=== PATIENT | female | born 1955 | race Caucasian/White ===

== ENCOUNTER 2018-01-06 13:58 | Emergency (ER) | payer OTHER ==
[~2018-01-06] VITALS: Ht 152.4 cm; Wt 80.3 kg
[~2018-01-06 13:58] MED LIST: AMLODIPINE BESYL5 M1 PO; CLONAZEPAM2 MG PO; COZAAR100 MG PO; ENBREL50 MG/ML INJ; MET2.5 PO; METOPROLOL SUC100 M2 PO
[2018-01-06 14:09] VITALS: Ht 152.4 cm; Wt 80.3 kg
[2018-01-06 14:56] LABS: BASOPHIL % 0.3 % (0-2); PLATELET COUNT 264 x10^3mcL (130-400); RED CELL DISTRIBUTION WIDTH 14.2 % (11.5-14.5)
[2018-01-06 15:03] LABS: CALCIUM 9.3 mg/dL (8.5-10.1); CARBON DIOXIDE 30.9 mmol/L (21-32); CHLORIDE SERUM 101 mmol/L (98-107); CREATININE SERUM 0.8 mg/dL (0.6-1.0); GFR1 > 60 mL/min; GLUCOSE SERUM 103 mg/dL (74-106); SODIUM SERUM 137 mmol/L (136-145)
[2018-01-06 15:08] LABS: ALBUMIN 3.5 g/dL (3.4-5.0); ALKALINE PHOSPHATASE 93 U/L (46-116); ALT/SGPT 25 U/L (14-59); AST/SGOT 11 U/L (15-37); BILIRUBIN TOTAL 0.3 mg/dL (0.20-1.00); TOTAL PROTEIN, SERUM 8.5 g/dL (6.4-8.2)
[2018-01-06 15:51] LABS: microscopic required? YES; urine erythrocyte TRACE (NEGATIVE)
[2018-01-06 17:28] VITALS: BP 130/64
== END 2018-01-06 18:05 | disposition home or self-care (01) ==
LOC: ED 13:58
PROVIDERS: Emergency Medicine
DX: G89.29 Other chronic pain (principal); R10.11 Right upper quadrant pain; R10.31 Right lower quadrant pain; R35.0 Frequency of micturition; I10 Essential (primary) hypertension; Z88.5 Allergy status to narcotic agent
CPT/HCPCS: J0696; J1885; J7030; Q0092

== ENCOUNTER 2018-03-22 14:30 | Inpatient (IN) | payer OTHER ==
[~2018-03-22] VITALS: Ht 152.4 cm; Wt 82.0 kg
[~2018-03-22 14:30] MED LIST changes: -AMLODIPINE BESYL5 M1 PO; +NOR10 PO
[2018-03-22 14:36] VITALS: Ht 152.4 cm; Wt 82.0 kg
[2018-03-22 16:15] LABS: CALCIUM 8.8 mg/dL (8.5-10.1); CARBON DIOXIDE 27.9 mmol/L (21-32); CHLORIDE SERUM 104 mmol/L (98-107); CREATININE SERUM 0.6 mg/dL (0.6-1.0); GFR1 > 60 mL/min; GLUCOSE SERUM 92 mg/dL (74-106); POTASSIUM SERUM 3.5 mmol/L (3.5-5.1); SODIUM SERUM 139 mmol/L (136-145)
[2018-03-22 16:19] LABS: ALKALINE PHOSPHATASE 98 U/L (46-116); ALT/SGPT 24 U/L (14-59); AST/SGOT 16 U/L (15-37); BILIRUBIN TOTAL 0.19 mg/dL (0.20-1.00); HDL CHOLESTEROL 39 mg/dL (40-60); LIPASE 242 IU/L (73-393)
[2018-03-22 16:27] LABS: BASOPHIL % 0.7 % (0-2); PLATELET COUNT 279 x10^3mcL (130-400)
[2018-03-22 16:43] LABS: ALBUMIN 3.3 g/dL (3.4-5.0); CHOLESTEROL 205 mg/dL (<200); CHOLESTEROL/HDL RATIO 5.3; TOTAL PROTEIN, SERUM 8.5 g/dL (6.4-8.2); TRIGLYCERIDES 476 mg/dL (<150)
[2018-03-22 16:45] LABS: T3 TOTAL 1.09 ng/mL
[2018-03-22 16:47] LABS: FREE T4 1.01 ng/dL (0.76-1.46); FREE THYROXINE INDEX 2.2 ug/dL (1.4-4.5); T4(THYROXINE) 6.7 ug/dL (4.7-13.3)
[2018-03-22 17:00] LABS: microscopic required? YES; urine erythrocyte 1+ (NEGATIVE)
[2018-03-22] MEDS ORDERED: METFORMIN HYDR500 M1 PO (17:55)
[2018-03-22 20:03] VITALS: BP 175/73
[2018-03-22 20:22] LABS: MAGNESIUM 2.2 mg/dL (1.8-2.4); PHOSPHOROUS 3.4 mg/dL (2.5-4.9)
[2018-03-23 05:47] VITALS: BP 146/77
[2018-03-23 08:58] VITALS: BP 161/71
[2018-03-23 10:31] LABS: BASOPHIL % 0.5 % (0-2); PLATELET COUNT 274 x10^3mcL (130-400); RED CELL DISTRIBUTION WIDTH 13.9 % (11.5-14.5)
[2018-03-23 10:36] LABS: CALCIUM 8.7 mg/dL (8.5-10.1); CARBON DIOXIDE 26.5 mmol/L (21-32); CHLORIDE SERUM 103 mmol/L (98-107); CREATININE SERUM 0.6 mg/dL (0.6-1.0); GFR1 > 60 mL/min; GLUCOSE SERUM 168 mg/dL (74-106); PHOSPHOROUS 2.3 mg/dL (2.5-4.9); POTASSIUM SERUM 3.3 mmol/L (3.5-5.1); SODIUM SERUM 141 mmol/L (136-145)
[2018-03-23 12:16] VITALS: BP 151/70
[2018-03-23 17:31] VITALS: BP 132/60
[2018-03-23 20:45] VITALS: BP 139/67
[2018-03-24 05:30] VITALS: BP 145/77
[2018-03-24 05:59] LABS: BASOPHIL % 0.5 % (0-2); PLATELET COUNT 259 x10^3mcL (130-400); RED CELL DISTRIBUTION WIDTH 13.7 % (11.5-14.5)
[2018-03-24 06:38] LABS: CALCIUM 9.1 mg/dL (8.5-10.1); CARBON DIOXIDE 26.7 mmol/L (21-32); CHLORIDE SERUM 105 mmol/L (98-107); CREATININE SERUM 0.6 mg/dL (0.6-1.0); GFR1 > 60 mL/min; GLUCOSE SERUM 107 mg/dL (74-106); POTASSIUM SERUM 3.8 mmol/L (3.5-5.1); SODIUM SERUM 141 mmol/L (136-145)
[2018-03-24 09:42] VITALS: BP 136/68
[2018-03-24 13:48] VITALS: BP 144/79
[2018-03-24] MEDS ORDERED: PROTONIX20 MG PO (16:47)
[2018-03-24 18:16] VITALS: BP 158/68
== END 2018-03-24 19:00 | disposition home or self-care (01) | DRG 392 ==
LOC: ED 14:30 → DU 17:51
PROVIDERS: Internal Medicine; Specialist
DX: K21.9 Gastro-esophageal reflux disease without esophagitis (principal); E44.1 Mild protein-calorie malnutrition; E11.65 Type 2 diabetes mellitus with hyperglycemia; E87.6 Hypokalemia; I16.0 Hypertensive urgency; H10.13 Acute atopic conjunctivitis, bilateral; E83.39 Other disorders of phosphorus metabolism; E78.5 Hyperlipidemia, unspecified; M06.9 Rheumatoid arthritis, unspecified; Z68.30 Body mass index [BMI] 30.0-30.9, adult; Z79.84 Long term (current) use of oral hypoglycemic drugs
CPT/HCPCS: 82962; 83880; 84439; C9113; J7030; Q0092

== ENCOUNTER 2019-10-26 16:51 | Inpatient (IN) | payer OTHER ==
[~2019-10-26] VITALS: Ht 152.4 cm; Wt 82.2 kg
[~2019-10-26 16:51] MED LIST changes: +METFORMIN HYDR500 M1 PO; +PROTONIX20 MG PO
[2019-10-26 17:03] VITALS: Ht 152.4 cm; Wt 82.2 kg
[2019-10-26 18:34] LABS: BASOPHIL % 0.6 % (0-2); PLATELET COUNT 304 x10^3mcL (130-400); RED CELL DISTRIBUTION WIDTH 14.3 % (11.5-14.5)
[2019-10-26 18:46] LABS: CALCIUM 8.8 mg/dL (8.5-10.1); CARBON DIOXIDE 31.7 mmol/L (21-32); CHLORIDE SERUM 104 mmol/L (98-107); CREATININE SERUM 0.6 mg/dL (0.6-1.0); GFR1 > 60 mL/min; GLUCOSE SERUM 113 mg/dL (74-106); POTASSIUM SERUM 4.2 mmol/L (3.5-5.1); SODIUM SERUM 141 mmol/L (136-145)
[2019-10-26 18:53] LABS: ALBUMIN 3.5 g/dL (3.4-5.0); ALKALINE PHOSPHATASE 93 U/L (46-116); ALT/SGPT 21 U/L (14-59); AST/SGOT 14 U/L (15-37); BILIRUBIN TOTAL 0.25 mg/dL (0.20-1.00); CHOLESTEROL 154 mg/dL (<200); HDL CHOLESTEROL 38 mg/dL (40-60); LIPASE 807 IU/L (73-393)
[2019-10-26 18:54] LABS: TOTAL PROTEIN, SERUM 8.5 g/dL (6.4-8.2)
[2019-10-26 19:32] LABS: microscopic required? NO
[2019-10-26 19:52] LABS: urine erythrocyte NEGATIVE (NEGATIVE)
[2019-10-26 20:07] LABS: AMPHETAMINE QUAL UR NONE DETECTED (See below)
[2019-10-26] MEDS ORDERED: COZAAR50 M1 PO (20:16)
[2019-10-26] MEDS ORDERED: NATURE'S BLEND F1 MG (20:16)
[2019-10-26] MEDS ORDERED: ASPIR 8181 MG (20:16)
[2019-10-26] MEDS ORDERED: MET2.5 PO (20:17)
[2019-10-26 21:38] LABS: CHOLESTEROL/HDL RATIO 4.3; T3 TOTAL 1.03 ng/mL
[2019-10-26 21:51] LABS: FREE T4 1.13 ng/dL (0.76-1.46); FREE THYROXINE INDEX 2.8 ug/dL (1.4-4.5); T4(THYROXINE) 8.1 ug/dL (4.7-13.3)
[2019-10-26 23:31] VITALS: BP 198/78
[2019-10-27] VITALS (8 sets, daily range): BP systolic 100–210; BP diastolic 45–84
[2019-10-27 06:49] LABS: BASOPHIL % 0.4 % (0-2); PLATELET COUNT 285 x10^3mcL (130-400); RED CELL DISTRIBUTION WIDTH 14.5 % (11.5-14.5)
[2019-10-27 07:08] LABS: CALCIUM 8.4 mg/dL (8.5-10.1); CARBON DIOXIDE 26.4 mmol/L (21-32); CHLORIDE SERUM 103 mmol/L (98-107); CREATININE SERUM 0.7 mg/dL (0.6-1.0); GFR1 > 60 mL/min; GLUCOSE SERUM 118 mg/dL (74-106); MAGNESIUM 2.2 mg/dL (1.8-2.4); PHOSPHOROUS 2.8 mg/dL (2.5-4.9); POTASSIUM SERUM 3.8 mmol/L (3.5-5.1); SODIUM SERUM 140 mmol/L (136-145)
[2019-10-28 06:13] VITALS: BP 131/54
[2019-10-28 07:10] LABS: BASOPHIL % 0.3 % (0-2); PLATELET COUNT 276 x10^3mcL (130-400)
[2019-10-28 07:13] LABS: RED CELL DISTRIBUTION WIDTH 14.6 % (11.5-14.5)
[2019-10-28 07:36] LABS: CALCIUM 8.6 mg/dL (8.5-10.1); CHLORIDE SERUM 105 mmol/L (98-107); CREATININE SERUM 0.7 mg/dL (0.6-1.0); GFR1 > 60 mL/min; GLUCOSE SERUM 107 mg/dL (74-106); MAGNESIUM 2.4 mg/dL (1.8-2.4); PHOSPHOROUS 3.8 mg/dL (2.5-4.9); POTASSIUM SERUM 3.9 mmol/L (3.5-5.1); SODIUM SERUM 140 mmol/L (136-145)
[2019-10-28 11:37] VITALS: BP 116/59
[2019-10-28 12:05] VITALS: BP 136/52
[2019-10-28] MEDS ORDERED: COZAAR50 M1 PO (12:54)
[2019-10-28] MEDS ORDERED: COREG25 M1 GT (12:58)
== END 2019-10-28 14:15 | disposition home or self-care (01) | DRG 305 ==
LOC: ED 16:51 → DU 20:48
PROVIDERS: Emergency Medicine; ADMIT Internal Medicine
DX: I16.0 Hypertensive urgency (principal); J06.9 Acute upper respiratory infection, unspecified; I10 Essential (primary) hypertension; K21.9 Gastro-esophageal reflux disease without esophagitis; E11.9 Type 2 diabetes mellitus without complications; E78.1 Pure hyperglyceridemia; M06.9 Rheumatoid arthritis, unspecified; E66.9 Obesity, unspecified; Z68.35 Body mass index [BMI] 35.0-35.9, adult; Z79.84 Long term (current) use of oral hypoglycemic drugs
CPT/HCPCS: 83880; 84439; 90658; C9113; G0378; J0360; J1885